=== PATIENT | female | born 1995 | race Caucasian/White ===

== ENCOUNTER → 2018-09-07 | Outpatient (CLI) | payer OTHER | END | disposition home or self-care (01) | LOC: RAD 13:20 | PROVIDERS: ATTEND Family Medicine | DX: M41.83 Other forms of scoliosis, cervicothoracic region (principal) | CPT/HCPCS: 72082 ==

== ENCOUNTER 2020-08-22 18:48 | Emergency (ER) | payer SELFPAY ==
[~2020-08-22] VITALS: Ht 160 cm; Wt 65.0 kg
--- NOTE | 2020-08-22 19:28 | NUR ---
PATIENT RESTING IN BED IN NAD. CALL MORATAYA IN REACH. VISITOR AT BEDSIDE. PATIENT REPORTS HAVING INTERMITTENT EPISODES OF CONFUSION "I FORGOT HOW TO WRITE YESTERDAY". SAFETY MAINTAINED. VS REMAIN STABLE ON RA.
[2020-08-22] MEDS ORDERED: KETOROLAC 30 MG/1 ML IM ONE (19:30)
[2020-08-22] MEDS ORDERED: ACETAMINOPHEN 500 MG TABLET PO ONE (19:30)
[2020-08-22] MEDS ORDERED: ACETAMINOPHEN 500 MG TABLET ONE (19:32)
[2020-08-22] MEDS ORDERED: KETOROLAC 30 MG/1 ML ONE (19:32)
[2020-08-22] MEDS ORDERED: DOXY100C2 PO (19:36)
[2020-08-22] MEDS ORDERED: TRAZ-175 PO (19:36)
[2020-08-22 19:54] LABS: BASOPHILS % (AUTO) 1 % (0-1); EOSINOPHILS % (AUTO) 1 % (1-7); LYMPHOCYTES % (AUTO) 54 % (22-44); MEAN CORPUSCULAR HEMOGLOBIN 32.8 pg (27.0-34.8); MEAN PLATELET VOLUME 7.7 fL (7.4-10.4); MONOCYTES % (AUTO) 13 % (2-9); NEUTROPHILS % (AUTO) 31 % (42-75); PLATELET COUNT 242 x10^3/uL (130-400); RED BLOOD COUNT 4.17 x10^6/uL (3.82-5.3); RED CELL DISTRIBUTION WIDTH 13.1 % (9.6-15.2)
[2020-08-22 19:56] LABS: ALBUMIN 3.7 g/dL (3.4-5.0); ANION GAP 5 mmol/L (5-15); CALCIUM 8.8 mg/dL (8.5-10.1); CHLORIDE 108 mmol/L (98-107)
[2020-08-22 20:02] LABS: ALANINE AMINOTRANSFERASE 22 U/L (12-78); ALKALINE PHOSPHATASE 51 U/L (45-117); BILIRUBIN,TOTAL 0.9 mg/dL (0.2-1.0); TOTAL PROTEIN 7.5 g/dL (6.4-8.2); TROPONIN I < 0.015 ng/mL (0.000-0.045)
--- NOTE | 2020-08-22 20:16 | NUR ---
Note [email or web address] in EDM - 08/22/20 at 2018 by EMILY IV REMOVED PER DC PROTOCOL. PATIENT GETTING DRESSED. DR. BATEMAN IN TO REVIEW CARE FOR RASH WITH PATIENT. ALL QUESTIONS ANSWERED. WAITING FOR DC INSTRUCTIONS AND WILL ADMINISTER ATARAX TO PATIENT MINUTES BEFORE BEING DISCHARGED. PATIENT IS AWARE OF SIDE EFFECTS OF ATARAX AND HE STATES HE LIVES 5 MINUTES AWAY AND IS DRIVING STRAIGHT HOME. PATIENT EDUCATED THAT THIS MEDICATION COULD MAKE HIM DROWSY/SLEEPY. PATIENT ACKNOWLEDGES THIS WITH DOCTOR. WILL CONTINUE TO MONITOR
[2020-08-22 20:17] LABS: MD SCAN
--- NOTE | 2020-08-22 20:23 | NUR ---
PATIENT IN CT
--- NOTE | 2020-08-22 20:45 | NUR ---
PATIENT BACK FROM CT. AMBULATED TO BATHROOM WITH STEADY GAIT.
--- NOTE | 2020-08-22 21:15 | NUR ---
COVID SWAB PERFORMED BY DR. BRANCH AND WALKED TO LAB
--- NOTE | 2020-08-22 21:24 | NUR ---
DISCHARGE INSTRUCTIONS REVIEWED WITH PATIENT AND MOTHER AT BEDSIDE. NO FURTHER QUESTIONS. INSTRUCTED TO QUARANTINE UNTIL RESULTS COME BACK NEGATIVE AND OTHERWISE, 10 DAYS AFTER SYMPTOMS STARTED IF POSITIVE. GRUBBS VIRUS INFO SHEET PROVIDED WELL TO PATIENT. NO IV PLACED DURING THIS ER VISIT. STEADY GAIT TO LOBBY. ALL PERSONAL BELONGINGS WITH PATIENT ON DC.
[2020-08-22 21:25] VITALS: BP 119/77
== END 2020-08-22 21:27 | disposition home or self-care (01) ==
LOC: ED 21:00
DX: R11.2 Nausea with vomiting, unspecified (principal); Z20.822 Contact with and (suspected) exposure to COVID-19; B34.9 Viral infection, unspecified; R07.1 Chest pain on breathing; G44.209 Tension-type headache, unspecified, not intractable
CPT/HCPCS: 36415; 70450; 71045; 80053; 84484; 84703; 85025; 85379; 87635; 93005; 96372; 99285; J1885